=== PATIENT | female | born 2005 ===

== ENCOUNTER 2024-02-18 12:15 | Emergency (ER) | payer SELFPAY ==
[2024-02-18 12:16] VITALS: BP 119/84; PULSE 69; RESP 18; TEMP 36.6; O2SAT 100; BMI 19.2
--- NOTE | 2024-02-18 14:01 | ED.RN ---
pt decided to not continue to wait in waiting room to be seen
== END 2024-02-18 13:52 | disposition left against medical advice (07) ==
LOC: ED 13:59
DX: Z53.21 Procedure and treatment not carried out due to patient leaving prior to being seen by health care provider (principal)